=== PATIENT | female | born 1950 | race Caucasian/White ===

== ENCOUNTER 2017-09-24 12:21 | Day surgery (SDC) | payer MEDICARE ==
[~2017-09-24] VITALS: Ht 172.7 cm; Wt 77.3 kg
--- NOTE | ~2017-09-24 | OP ---
PATIENT NAME: JOSE G AHUJA MEDICAL RECORD: [id number] :48 LOCATION:[facility] ADMISSION DATE: SURGEON: RONALD ARMIJO MD DATE OF OPERATION: 09/24/2017 PROCEDURE: EGD with biopsy and esophageal Savary dilatation. INDICATIONS: Ms. Ahuja is a delightful 67-year-old woman with a history of a thick Schatzki's ring, hiatal hernia, and diverticulosis coli. She was diagnosed approximately a year ago with iron deficiency anemia and diagnosed in June with polymyalgia rheumatica. Her last colonoscopy was 06/25/2016 with finding showing moderate diverticulosis of the sigmoid colon, otherwise unremarkable colonoscopy. Last EGD was 03/05/2016 that showed a thick esophageal Schatzki's ring that was dilated with a Savary up to a 57-Ugandan mild esophagitis, moderate sized hiatal hernia, and mild gastritis. Antral biopsies were negative for H. pylori. She has been receiving iron transfusion. She has been seen in consultation with Dr. Amadeo Hackett, has been receiving iron transfusions. Her hemoglobin today is 11.5 with an MCV of 83.7. She presents for outpatient EGD to further investigate etiology of her iron deficiency anemia and for esophageal dilatation as she has had recurrent dysphagia symptoms. PREMEDICATIONS: Total IV anesthesia (propofol 350). INSTRUMENT: Olympus video gastroscope and a 57-Ugandan Savary dilator. PROCEDURE AND FINDINGS: After receiving informed consent, Ms. Cope posterior pharynx was anesthetized with Cetacaine spray, placed in left lateral decubitus position, sedated as per anesthesia. After achieving adequate sedation, gastroscope was introduced per orally and advanced to the duodenum without difficulty. The esophageal mucosa was without erythema or ulcers. The GE junction was a thick nonobstructive Schatzki's ring. A moderate size hiatal hernia is present. Gastric mucosa was notable for patchy erythema in the antrum and body of the stomach. There was also scattered brown pigmented material in the body and antrum of the stomach consistent with stigmata of recent bleeding. There were no lesions seen in the antrum along the incisura, cardia, fundus, or body of the stomach. Antral biopsies were obtained to rule out Helicobacter pylori. Pylorus was patent and competent. Duodenal mucosa was without erythema, ulcers, and appeared normal through the third portion. Biopsies were taken from the second portion of duodenum to rule out celiac disease. Gastroscope was then withdrawn to the stomach. A guidewire was introduced through the gastroscope and then the gastroscope was withdrawn. The guidewire was held in place at approximately 45 cm and the Savary dilator was passed over the guidewire and then the guidewire and Savary withdrawn. Ms. Ahuja tolerated the procedure well, no immediate complications. ASSESSMENT: 1. Esophageal Schatzki's ring status post Savary dilatation 57-Ugandan. 2. Moderate size hiatal hernia. 3. Gastritis with stigmata of recent bleeding (hemorrhagic gastritis) normal-appearing duodenum. 4. Iron deficiency anemia. RECOMMENDATIONS: 1. Follow up histopathology. 2. Prilosec 40 mg daily. OPERATIVE REPORT [id number] AMANDA AHUJAILDA MASSEY 3. Consider reducing dose of full strength aspirin to 81 mg daily, enteric-coated if acceptable. TRANSINT:[id number] Voice Confirmation ID: [id number] DOCUMENT ID: [id number] RONALD ARMIJO MD at 1019 CC: AMADEO HACKETT MD [id number] DICTATION DATE: 09/24/17 1623 PARTS COUNTERMAN: 09/24/17 1654 [facility] 09/24/17 [facility] [address] [place] [address]
[~2017-09-24 12:21] MED LIST: ASPIRIN325 MG PO; ATIVAN0.5 MG PO; BAYER CHEWABLE81 MG PO; CIPRO500 MG PO; CLEOCIN HCL150 MG PO; CYMBALTA60 MG PO; FLAGYL500 MG PO; GLUCOPHAGE500 MG PO; LIPITOR20 MG PO; MACRODANTIN100 MG PO; OMEPRAZOLE20 M1 PO; OMEPRAZOLE40 MG PO; TOPROL XL25 MG PO; ULTRAM50 MG PO; ZOFRAN4 MG PO
[2017-09-24 13:43] LABS: BASOPHILS 0.2 % (0-2); EOSINOPHILS 0.5 % (0-7); HEMATOCRIT 37.6 % (36.0-48.0); HEMOGLOBIN 11.5 g/dL (12-16); IMMATURE GRANULOCYTES 0.5 % (0-5); LYMPHOCYTES 28.4 % (15-50); MCH 25.6 pg (26.0-34.0); MCHC 30.6 g/dL (31.0-37.0); MCV 83.7 fL (80.0-100.0); MEAN PLATELET VOLUME 8.2 fL (7.4-10.4); MONOCYTES 5.7 % (2-11); NEUTROPHILS 64.7 % (40-80); PLATELET COUNT 324 10x3/uL (130-400); RBC 4.49 10x6/uL (4.00-5.40); RDW 29.8 % (11.5-14.5); WBC 8.7 10x3/uL (4.8-10.8)
[2017-09-24 13:51] LABS: CALC OSMOLALITY 280 mosm/kg (275-300); CARBON DIOXIDE 29.5 mmol/L (21.0-32.0); CHLORIDE - SERUM 103 mmol/L (98-107); CREATININE - SERUM 0.8 mg/dL (0.6-1.3); GLUCOSE 119 mg/dL (74-106); POTASSIUM - SERUM 3.9 mmol/L (3.5-5.1); SODIUM 140 mmol/L (136-145); UREA NITROGEN 15 mg/dL (7-18); eGFR NON AFRICAN AMERICAN 75 mL/min (90-120)
[2017-09-24 13:55] VITALS: BP 132/62; Ht 172.7 cm; Wt 77.3 kg
== END 2017-09-24 17:15 | disposition home or self-care (01) ==
LOC: D.OPS 12:21
PROVIDERS: Anesthesiology
DX: K22.2 Esophageal obstruction (principal); K44.9 Diaphragmatic hernia without obstruction or gangrene; K29.71 Gastritis, unspecified, with bleeding; I50.9 Heart failure, unspecified; Z01.812 Encounter for preprocedural laboratory examination; M35.3 Polymyalgia rheumatica

== ENCOUNTER 2020-01-23 08:19 | Day surgery (SDC) | payer MEDICARE ==
[~2020-01-23] VITALS: Ht 172.7 cm; Wt 84.1 kg
--- NOTE | ~2020-01-23 | OP ---
PATIENT NAME: JOSE G CUELLAR MEDICAL RECORD: [id number] :48 LOCATION:[facility] ADMISSION DATE: SURGEON: LATISHA MORALES DO DATE OF OPERATION: 01/23/2020 PROCEDURE: EGD with dilation and biopsies. INDICATIONS FOR PROCEDURE: Nausea, vomiting, esophageal dysphagia, epigastric pain, and heartburn. SCOPE: Olympus video gastroscope. MEDICATIONS: Propofol 300 mg IV per anesthesia. ESTIMATED BLOOD LOSS: Minimal. COMPLICATIONS: None. FINDINGS: Informed consent was given. The patient was made comfortable with the above medication. After reaching an adequate level of sedation by slow IV push, the patient was placed on her left side. The endoscope was advanced under direct visualization through the mouth to the second portion of the duodenum with ease. The upper, middle, and lower thirds of the esophagus appeared normal. At the GE junction, there was evidence of LA class B reflux-induced esophagitis. Also, at the GE junction, there was a thick Schatzki ring with a luminal diameter of approximately 13 mm. The endoscope was advanced beyond this site into the stomach where a large hiatal hernia was evident. Retroflexion was performed beyond the hernia to confirm the size and appearance. There were no associated ulcerations. Throughout the stomach, there were patchy areas of erythema and congestion consistent with mild chronic gastritis. Cold forceps, biopsies were taken from the antrum and incisura to submit for histopathology and to rule out the presence of H. pylori. The endoscope was advanced beyond the pylorus into the duodenum, which appeared normal to the second portion. Cold forceps, biopsies were taken to submit for histopathology in light of the patient's diarrhea. The endoscope was then brought back into the stomach and a Savary dilating guidewire was placed through the endoscope. The endoscope was withdrawn from the patient and a 57-Romanian Savary dilator was placed over the wire and used to dilate the Schatzki's ring. The dilator and guidewire were then removed from the patient. The endoscope was placed back into the esophagus and down to the Schatzki ring where there was some mild dilation apparent. A 20-mm CRE dilating balloon was then used to dilate the site further to 20 mm maximum diameter successfully. The endoscope and guidewire were then withdrawn from the patient. The patient tolerated the procedure well and there were no complications. IMPRESSION: 1. LA class B reflux-induced esophagitis. 2. Schatzki ring, status post dilation with both the Savary dilator to 57-Romanian and a CRE dilating balloon to 20 mm. 3. Large hiatal hernia. 4. Mild chronic gastritis changes. PLAN AND RECOMMENDATIONS: 1. Discharge home when recovery parameters are met. 2. Follow up biopsy specimen results. OPERATIVE REPORT [id number] JOSE G CUELLAR 3. GERD diet and reflux precautions. 4. Omeprazole 40 mg daily times 60 days followed by reduction in dose to 20 mg daily as needed for epigastric pain and reflux/heartburn symptoms. 5. Consider laparoscopic fundoplication of the large hiatal hernia, which is likely contributing to the patient's symptoms. 6. Repeat EGD as needed for dysphagia. TRANSINT:[id number] Voice Confirmation ID: [id number] DOCUMENT ID: [id number] LATISHA MORALES DO CC: [id number] DICTATION DATE: 01/23/20 1118 AIR CONDITIONING MANAGER: 01/23/202055 [facility] 01/23/20 [id number] [place] [address]
[2020-01-23 08:56] LABS: ANION GAP 10.3 mmol/L (8-16); CALCIUM 9.7 mg/dL (8.5-10.1); CARBON DIOXIDE 30.4 mmol/L (21.0-32.0); CREATININE - SERUM 1.1 mg/dL (0.6-1.3); POTASSIUM - SERUM 3.7 mmol/L (3.5-5.1)
[2020-01-23] MEDS ORDERED: JANUMET 50-5001 EAC1 PO (09:01)
[2020-01-23] MEDS ORDERED: STERAPRED 5MG 65 M1 PO (09:02)
[2020-01-23] MEDS ORDERED: PEPCID40 MG PO (09:02)
[2020-01-23] MEDS ORDERED: CYCLOBENZAPRINE10 MG PO (09:02)
[2020-01-23 09:03] LABS: BASOPHILS 0.3 % (0-2); EOSINOPHILS 1.6 % (0-7); HEMATOCRIT 33.4 % (36.0-48.0); HEMOGLOBIN 10.1 g/dL (12-16); IMMATURE GRANULOCYTES 0.5 % (0-5); LYMPHOCYTES 26.8 % (15-50); MCH 26.3 pg (26.0-34.0); MCHC 30.2 g/dL (31.0-37.0); MEAN PLATELET VOLUME 8.7 fL (7.4-10.4); MONOCYTES 5.3 % (2-11); NEUTROPHILS 65.5 % (40-80); RBC 3.84 10x6/uL (4.00-5.40); RDW 15.9 % (11.5-14.5); WBC 11.5 10x3/uL (4.8-10.8)
[2020-01-23] MEDS ORDERED: CRESTOR5 MG PO (09:03)
[2020-01-23 09:04] LABS: PLATELET COUNT 456 10x3/uL (130-400)
[2020-01-23 09:08] VITALS: BP 139/64; Ht 172.7 cm; Wt 84.1 kg
--- NOTE | 2020-01-23 11:55 | NUR ---
DRESSED IN PERSONAL CLOTHING. RIGHT HAND PIV DC'D WITH TIP INTACT. DISCHARGE INSTRUCTIONS REVIEWED WITH PATIENT AND SPOUSE, DISCHARGED HOME VIA WHEELCHAIR TO PRIVATE VEHICLE AT 1156
== END 2020-01-23 11:56 | disposition home or self-care (01) ==
LOC: D.OPS 08:19
PROVIDERS: Anesthesiology; ATTEND Internal Medicine Gastroenterology
DX: R11.2 Nausea with vomiting, unspecified (principal); R13.19 Other dysphagia; R10.13 Epigastric pain; K21.0 Gastro-esophageal reflux disease with esophagitis; K44.9 Diaphragmatic hernia without obstruction or gangrene; K29.50 Unspecified chronic gastritis without bleeding